=== PATIENT | female | born 1965 | race Caucasian/White ===

== ENCOUNTER → 2018-02-02 | Outpatient (CLI) | payer BC ==
[~2018-02-02] MED LIST: NO HOME MEDICATIONS; SUMATRIPTAN SUC50 MG PO; ULTRAM 50MG TAB50 MG PO
== END ==
LOC: MC.RAD 14:14
DX: Z12.31 Encounter for screening mammogram for malignant neoplasm of breast (principal)

== ENCOUNTER → 2019-02-18 | Outpatient (CLI) | payer BC | LOC: MC.RAD 13:39 | DX: Z12.31 Encounter for screening mammogram for malignant neoplasm of breast (principal) ==

== ENCOUNTER 2019-08-02 17:24 | Emergency (ER) | payer BC ==
[~2019-08-02] VITALS: Ht 160 cm; Wt 47.3 kg
[2019-08-02 17:39] VITALS: TEMP 98.5
[2019-08-02 18:24] LABS: BASO % 0.3 % (0.0-2.0); GRAN # 8.6 (1.4-6.5); GRAN % 86.8 % (42.2-75.2); HEMATOCRIT 42.2 % (37.0-47.0); HEMOGLOBIN 14.1 g/dl (12.5-16.0); LYMPH # 0.9 (1.2-3.4); LYMPH % 9.2 % (20.0-51.0); MEAN CELL VOLUME 87 fl (80.0-100.0); MEAN CORPUSCULAR HEMOGLOBIN 29 pg (27.0-31.0); MEAN CORPUSCULAR HGB CONC 33 g/dl (33.0-37.0); MEAN PLATELET VOLUME 8.5 fl (7.4-10.4); MONO # 0.3 (0.1-0.6); MONO % 3.4 % (1.7-9.3); PLATELET COUNT 302 K/mm3 (130-400); RED BLOOD COUNT 4.83 M/mm3 (4.10-5.30); REDCELL DISTRIBUTION WIDTH-CV 11.9 % (11.5-14.5)
[2019-08-02 18:40] LABS: ALBUMIN 4.5 gm/dL (3.5-5.0); BILIRUBIN,TOTAL 0.5 mg/dL (0.0-1.0); CALCIUM 9.7 mg/dL (8.4-10.2); CREATININE, serum 0.6 (0.52-1.25); TOTAL PROTEIN 7.7 gm/dL (6.4-8.2)
[2019-08-02 20:01] LABS: COLLECTION METHOD CLEAN CATCH
[2019-08-02 20:08] LABS: MUCOUS Present /lpf; PH 5 (5-8); SQUAMOUS EPITHELIAL 0-2 /hpf; URINE APPEARANCE Clear; URINE BACTERIA Rare /hpf; URINE BILIRUBIN Negative (NEGATIVE); URINE BLOOD 2+ (NEGATIVE); URINE COLOR Yellow; URINE GLUCOSE Negative (NEGATIVE); URINE KETONE 2+ (NEGATIVE); URINE LEUKOCYTE ESTERASE 1+ (NEGATIVE); URINE NITRATE Negative (NEGATIVE); URINE PROTEIN(semi-quant) 1+ (NEGATIVE); URINE UROBILINOGEN Negative (NEGATIVE)
[2019-08-02] MEDS ORDERED: ZOFRAN ODT4 MG PO (21:59)
[2019-08-02] MEDS ORDERED: CEFTIN 250250 MG/TAB PO (21:59)
[2019-08-02 22:02] VITALS: BP 125/73; PULSE 94
== END 2019-08-02 22:13 | disposition home or self-care (01) ==
LOC: COL.ER 17:24
PROVIDERS: Nurse Practitioner
DX: R19.7 Diarrhea, unspecified (principal); R11.10 Vomiting, unspecified; N39.0 Urinary tract infection, site not specified; Z88.5 Allergy status to narcotic agent; Z90.710 Acquired absence of both cervix and uterus
CPT/HCPCS: A4216; J0696; J2405; J2550; J7030

== ENCOUNTER → 2020-02-29 | Outpatient (CLI) | payer BC ==
[~2020-02-29] MED LIST changes: +CEFTIN 250250 MG/TAB PO; +ZOFRAN ODT4 MG PO
== END ==
LOC: MC.RAD 11:20
DX: Z12.31 Encounter for screening mammogram for malignant neoplasm of breast (principal)

== ENCOUNTER → 2021-03-21 | Outpatient (CLI) | payer BC | LOC: MC.RAD 10:10 | DX: Z12.31 Encounter for screening mammogram for malignant neoplasm of breast (principal) ==

== ENCOUNTER → 2022-04-03 | Outpatient (CLI) | payer BC | LOC: MC.RAD 08:08 | DX: Z12.31 Encounter for screening mammogram for malignant neoplasm of breast (principal) ==

== ENCOUNTER → 2024-05-11 | Outpatient (CLI) | payer BC | LOC: MC.RAD 13:39 | DX: Z12.31 Encounter for screening mammogram for malignant neoplasm of breast (principal) ==